=== PATIENT | male | born 2000 | race Caucasian/White ===

== ENCOUNTER 2020-12-17 10:56 | Inpatient (IN) | payer OTHER ==
[2020-12-17 12:05] LABS: #Eosinphils 0.3 10x3/uL (0.0-0.5); #Neutrophils 4.2 10x3/uL (1.5-8.4); %Basophils 0.5 % (0.0-2.0); %Eosinophils 4.3 % (0.0-6.0); %Lymphocytes 26.7 % (18.0-47.0); %Monocytes 13.4 % (0.0-10.0); %Neutrophils 54.8 % (40.0-75.0); Hemoglobin 14.9 g/dL (13.5-17.5); Mean Corpuscular HGB CONC 33.9 g/dL (32.0-36.0); Mean Corpuscular Hemoglobin 29.2 pg (27.0-33.0); Mean Corpuscular Volume 86.1 fl (81.2-95.1); Mean Platelet Volume 10.5 fl (7.4-10.4); Platelet Count 275 10x3/uL (150-450); RBC Distribution Width 12.8 % (11.5-14.5); White Blood Cell (WBC) Count 7.6 10x3/uL (3.5-10.5)
[2020-12-17 12:36] LABS: ALT (SGPT) 50 U/L (8-55); AST (SGOT) 79 U/L (5-34); Albumin 4.6 g/dL (3.5-5.0); Alkaline Phosphatase 67 U/L (40-110); Anion Gap 17 mmol/L (10-20); BUN (Urea Nitrogen) 16 mg/dL (8.9-20.6); Bilirubin, Total 0.7 mg/dL (0.2-1.2); Calc. Creatinine Clearance 0 mL/min (70-130); Calcium 9.9 mg/dL (7.8-10.44); Carbon Dioxide 23 mmol/L (22-29); Chloride 103 mmol/L (98-107); Globulin 3.8 g/dL (2.4-3.5); Glucose 103 mg/dL (70-105); Potassium 3.6 mmol/L (3.5-5.1); Protein, Total 8.4 g/dL (6.0-8.3); Sodium 139 mmol/L (136-145)
[2020-12-17 13:09] LABS: CKMB 27.8 ng/mL (0-6.6)
[2020-12-17] MEDS ORDERED: Aspirin 325 MG TAB ONE (13:20)
[2020-12-17] MEDS ORDERED: Lorazepam 1 MG TAB ONE (14:15)
[2020-12-17 14:22] LABS: SARS-CoV-2 NAA Rapid Test Not Detected (NotDetected)
[2020-12-17 15:04] LABS: Troponin I 9.273 ng/mL (< 0.028)
[2020-12-17] MEDS ORDERED: Acetaminophen 650 MG Suppository PR PRN (15:09)
[2020-12-17] MEDS ORDERED: Ondansetron ODT 4 MG TAB PO PRN (15:09)
[2020-12-17] MEDS ORDERED: Acetaminophen 325 MG TAB PO PRN (15:09)
[2020-12-17] MEDS ORDERED: Ondansetron PF 4 MG/2 ML Vial IVP PRN (15:09)
[2020-12-17 16:02] LABS: SARS-CoV-2 IgG Ab Non-Reactive (NonReactive)
[2020-12-17 16:08] LABS: SARS-CoV-2 IgG Index 0.05 S/CO (< 1.40)
[2020-12-17] MEDS ORDERED: methylPREDNISolone Sod Succ/PF 125 MG/2 ML VIAL IVP SCH ×2 (16:45→21:15)
[2020-12-17 18:54] LABS: CKMB 24.5 ng/mL (0-6.6)
[2020-12-17 18:54] LABS: Troponin I 9.256 ng/mL (< 0.028)
[2020-12-17] MEDS ORDERED: Enoxaparin Sodium 40 MG/0.4 ML SYRINGE SC SCH (21:00)
[2020-12-17] MEDS: Metoprolol Tartrate 25 MG TAB PO SCH (23:48)
[2020-12-18 05:14] VITALS: BMI 32.8
[2020-12-18 06:44] LABS: #Monocytes 0.2 10x3/uL (0.0-1.1); #Neutrophils 7.3 10x3/uL (1.5-8.4); %Basophils 0.2 % (0.0-2.0); %Eosinophils 0.3 % (0.0-6.0); %Monocytes 2.1 % (0.0-10.0); %Neutrophils 83.1 % (40.0-75.0); Hemoglobin 15.1 g/dL (13.5-17.5); Mean Corpuscular Hemoglobin 28.7 pg (27.0-33.0); Mean Corpuscular Volume 86.7 fl (81.2-95.1); Mean Platelet Volume 10.4 fl (7.4-10.4); Platelet Count 302 10x3/uL (150-450); Red Blood Cell (RBC) Count 5.27 10x6/uL (4.32-5.72); White Blood Cell (WBC) Count 8.8 10x3/uL (3.5-10.5)
[2020-12-18 06:56] LABS: ALT (SGPT) 54 U/L (8-55); AST (SGOT) 54 U/L (5-34); Albumin 4.7 g/dL (3.5-5.0); Alkaline Phosphatase 72 U/L (40-110); Anion Gap 15 mmol/L (10-20); BUN (Urea Nitrogen) 16 mg/dL (8.9-20.6); Bilirubin, Total 0.5 mg/dL (0.2-1.2); Calc. Creatinine Clearance 136 mL/min (70-130); Calcium 10.3 mg/dL (7.8-10.44); Carbon Dioxide 22 mmol/L (22-29); Chloride 105 mmol/L (98-107); Globulin 3.9 g/dL (2.4-3.5); Glucose 138 mg/dL (70-105); Potassium 4.4 mmol/L (3.5-5.1); Protein, Total 8.6 g/dL (6.0-8.3); Sodium 138 mmol/L (136-145)
[2020-12-18] MEDS: Metoprolol Tartrate 25 MG TAB PO SCH ×2 (08:50→23:04)
[2020-12-18] MEDS: Enoxaparin Sodium 40 MG/0.4 ML SYRINGE SC SCH (08:50)
[2020-12-18] MEDS: Aspirin 81 mg Enteric Coated Tablet PO SCH (08:50)
[2020-12-18] MEDS: predniSONE 20 MG TAB PO SCH (08:50)
[2020-12-18] MEDS ORDERED: hydrOXYzine 10 MG TAB PO PRN (10:30)
[2020-12-19] MEDS: Lorazepam 1 MG TAB PO PRN ×2 (02:27→16:02)
[2020-12-19 05:23] LABS: #Eosinphils 0.1 10x3/uL (0.0-0.5); #Monocytes 1.7 10x3/uL (0.0-1.1); %Basophils 0.2 % (0.0-2.0); %Eosinophils 0.5 % (0.0-6.0); %Lymphocytes 22.6 % (18.0-47.0); %Monocytes 10.2 % (0.0-10.0); Hemoglobin 14.6 g/dL (13.5-17.5); Mean Corpuscular HGB CONC 33.6 g/dL (32.0-36.0); Mean Corpuscular Hemoglobin 29.3 pg (27.0-33.0); Mean Platelet Volume 10.5 fl (7.4-10.4); Platelet Count 331 10x3/uL (150-450); RBC Distribution Width 13.2 % (11.5-14.5); Red Blood Cell (RBC) Count 4.99 10x6/uL (4.32-5.72); White Blood Cell (WBC) Count 16.7 10x3/uL (3.5-10.5)
[2020-12-19 05:33] LABS: ALT (SGPT) 43 U/L (8-55); AST (SGOT) 26 U/L (5-34); Albumin 4.4 g/dL (3.5-5.0); Alkaline Phosphatase 73 U/L (40-110); Anion Gap 15 mmol/L (10-20); BUN (Urea Nitrogen) 18 mg/dL (8.9-20.6); Bilirubin, Total 0.7 mg/dL (0.2-1.2); Calc. Creatinine Clearance 142 mL/min (70-130); Carbon Dioxide 23 mmol/L (22-29); Chloride 104 mmol/L (98-107); Globulin 3.8 g/dL (2.4-3.5); Glucose 107 mg/dL (70-105); Potassium 3.5 mmol/L (3.5-5.1); Protein, Total 8.2 g/dL (6.0-8.3); Sodium 138 mmol/L (136-145)
[2020-12-19 05:34] LABS: CRP (Inflammatory) 3.52 mg/dL (= or < 0.5)
[2020-12-19 05:35] LABS: CKMB 2.1 ng/mL (0-6.6)
[2020-12-19] MEDS: predniSONE 20 MG TAB PO SCH (09:20)
[2020-12-19] MEDS: Metoprolol Tartrate 25 MG TAB PO SCH ×2 (09:21→20:34)
[2020-12-19] MEDS: Aspirin 81 mg Enteric Coated Tablet PO SCH (09:21)
[2020-12-19] MEDS: Enoxaparin Sodium 40 MG/0.4 ML SYRINGE SC SCH (09:21)
[2020-12-19 12:36] LABS: ANA Symphony (Qualitative) Negative (Negative); ANA Symphony (Quantitative) 0.1 Ratio (< 0.7 Negative); dsDNA IgG Antibody 0.8 IU/mL (<10 Negative)
[2020-12-20] MEDS: Lorazepam 1 MG TAB PO PRN (03:02)
[2020-12-20 06:16] LABS: #Monocytes 1.4 10x3/uL (0.0-1.1); #Neutrophils 9.2 10x3/uL (1.5-8.4); %Basophils 0.2 % (0.0-2.0); %Eosinophils 0.2 % (0.0-6.0); %Monocytes 9.9 % (0.0-10.0); %Neutrophils 64.1 % (40.0-75.0); Hemoglobin 14.9 g/dL (13.5-17.5); Mean Corpuscular Hemoglobin 28.6 pg (27.0-33.0); Mean Corpuscular Volume 86.8 fl (81.2-95.1); Mean Platelet Volume 10.4 fl (7.4-10.4); Platelet Count 342 10x3/uL (150-450); RBC Distribution Width 12.9 % (11.5-14.5); Red Blood Cell (RBC) Count 5.21 10x6/uL (4.32-5.72); White Blood Cell (WBC) Count 14.3 10x3/uL (3.5-10.5)
[2020-12-20 06:30] LABS: ALT (SGPT) 36 U/L (8-55); AST (SGOT) 18 U/L (5-34); Albumin 4.4 g/dL (3.5-5.0); Alkaline Phosphatase 71 U/L (40-110); Anion Gap 15 mmol/L (10-20); BUN (Urea Nitrogen) 15 mg/dL (8.9-20.6); Bilirubin, Total 0.6 mg/dL (0.2-1.2); Calc. Creatinine Clearance 161 mL/min (70-130); Calcium 9.9 mg/dL (7.8-10.44); Carbon Dioxide 24 mmol/L (22-29); Chloride 104 mmol/L (98-107); Globulin 3.6 g/dL (2.4-3.5); Glucose 96 mg/dL (70-105); Potassium 3.5 mmol/L (3.5-5.1); Sodium 139 mmol/L (136-145)
[2020-12-20 07:16] LABS: CMV IgG AB Less than 0.60 U/mL (0.00-0.59)
[2020-12-20] MEDS: predniSONE 20 MG TAB PO SCH (08:35)
[2020-12-20] MEDS: Aspirin 81 mg Enteric Coated Tablet PO SCH (08:36)
[2020-12-20] MEDS: Enoxaparin Sodium 40 MG/0.4 ML SYRINGE SC SCH (08:36)
[2020-12-20] MEDS: Metoprolol Tartrate 25 MG TAB PO SCH (08:37)
[2020-12-20 12:11] LABS: Lyme IgG/IgM AB <0.91 ISR (0.00-0.90)
[2020-12-20 14:13] LABS: Parvovirus B19 IgG ABS 7.6 index (0.0-0.8); Parvovirus B19 IgM ABS 0.2 index (0.0-0.8)
[2020-12-20 16:16] VITALS: BP 129/82; TEMP 98.7
== END 2020-12-20 16:05 | disposition home or self-care (01) | DRG 282 ==
LOC: CSHERS 10:56 → CSHERHOLD 16:03 → CSHTELE 19:58
PROVIDERS: ADMIT Internal Medicine; ATTEND Internal Medicine
DX: I51.4 Myocarditis, unspecified (principal); I21.A1 Myocardial infarction type 2; T50.B95A Adverse effect of other viral vaccines, initial encounter; F41.9 Anxiety disorder, unspecified; Z20.822 Contact with and (suspected) exposure to COVID-19
CPT/HCPCS: 71045; 80053; 82550; 82553; 83880; 84484; 85025; 85652; 86038; 86140; 86225; 86618; 86644; 86645; 86747; 86769; 87498; 93005; 93010; 93306; 94760; J1650; J2930; J7512; U0002